=== PATIENT | male | born 1970 | race Caucasian/White ===

== ENCOUNTER 2017-08-31 22:04 | Inpatient (IN) ==
--- NOTE | 2017-08-31 22:26 | EKG Report ---
Test Performed on : 08/31/2017 10:21:00 PM Test Reason : CHEST PAIN Blood Pressure : / mmHG Vent. Rate : 069 BPM Atrial Rate : 069 BPM P-R Int : 180 ms QRS Dur : 100 ms QT Int : 410 ms P-R-T Axes : 073 -16 078 degrees QTc Int : 439 ms Normal sinus rhythm. Normal ECG No previous ECGs available Unconfirmed Result
[2017-08-31] MEDS ORDERED: ALBUTEROL NEB INH ONE (22:30)
[2017-08-31] MEDS ORDERED: DUONEB (A & A) INH ONE (22:30)
[2017-08-31] MEDS ORDERED: SOLU-MEDROL IV ONE (22:30)
[2017-08-31 22:33] LABS: MANUAL DIFF NEEDED? NO
[2017-08-31 23:04] LABS: BASO% 1.3 % (0.0-0.8); EOS# 0.38 X1000 (0.0-0.7); EOS% 6.4 % (0.0-10.0); HEMATOCRIT 44.9 % (42.0-52.0); HEMOGLOBIN 15.3 g/dL (14.0-18.0); IMM GRAN# 0.01 X1000 (0.0-0.04); IMM GRAN% 0.2 % (0.0-0.5); LYMPH# 2.54 X1000 (1.2-3.4); LYMPH% 42.8 % (20.5-51.1); MCH 32.4 PG (27-31); MCHC 34.1 g/dL (33-37); MCV 95.1 FL (81-99); MONO# 1.04 X1000 (0.11-0.59); MONO% 17.5 % (1.7-9.3); MPV 11.4 FL (7.4-10.4); NEUT% 31.8 % (42.2-75.2); PLT 202 X1000 (130-400); RBC 4.72 XMIL (4.7-6.1)
[2017-08-31 23:07] LABS: INR 0.95 (0.86-1.15); PROTIME 13.4 Seconds (12.1-15.5); PTT PL 29.1 Seconds (22.6-43.9)
[2017-08-31 23:11] LABS: ALBUMIN 3.8 g/dL (3.5-5.0); CALCIUM 9.1 mg/dL (8.8-10.2); TOTAL BILIRUBIN 0.4 mg/dL (0.20-1.00); TOTAL PROTEIN 8.8 g/dL (6.3-8.3)
[2017-08-31 23:31] LABS: CK INDEX 2.3 (0.0-2.5); CK-MB 9.17 ng/mL (0.0-5.0)
[2017-09-01] MEDS ORDERED: ZOFRAN IV PRN (00:09)
[2017-09-01] MEDS ORDERED: NICODERM PATCH TD ONE (00:27)
[2017-09-01] MEDS ORDERED: PNEUMOVAX 23 IM ONE (03:03)
[2017-09-01] MEDS: DUONEB (A & A) INH SCH ×5 (03:14→19:27)
--- NOTE | 2017-09-01 07:35 | Diag Imaging Result Doc PS360 ---
EXAM: CHEST-2 VIEWS INDICATION: SOB TECHNIQUE: 2 views COMPARISON: 02/07/2015 FINDINGS: The lungs are grossly clear. There is no discrete pleural fluid collection or pneumothorax. The cardiomediastinal silhouette and central vasculature are grossly unremarkable. IMPRESSION: No evidence of acute pathology by plain radiograph. Electronically signed by Manuel Centeno 09/01/2017 7:33 AM
[2017-09-01] MEDS: COZAAR PO SCH (09:36)
[2017-09-01] MEDS: SYNTHROID PO SCH (09:37)
[2017-09-01] MEDS ORDERED: DUONEB (A & A) INH PRN (14:12)
[2017-09-01] MEDS: SOLU-MEDROL IV SCH ×2 (15:33→22:07)
[2017-09-01] MEDS: ROCEPHIN 1 GM in NS 50 ML IV SCH (15:33)
[2017-09-01] MEDS: NORCO-10 PO PRN (15:59)
[2017-09-01] MEDS: NICODERM PATCH TD SCH (19:31)
[2017-09-02] MEDS: DUONEB (A & A) INH SCH ×7 (00:23→23:06)
[2017-09-02] MEDS: SOLU-MEDROL IV SCH ×3 (06:14→22:18)
[2017-09-02] MEDS: SYNTHROID PO SCH (06:15)
[2017-09-02] MEDS: NORCO-10 PO PRN (06:20)
[2017-09-02 06:24] LABS: BASO% 0.1 % (0.0-0.8); HEMATOCRIT 45.7 % (42.0-52.0); HEMOGLOBIN 15.3 g/dL (14.0-18.0); IMM GRAN# 0.07 X1000 (0.0-0.04); IMM GRAN% 0.3 % (0.0-0.5); LYMPH# 1.29 X1000 (1.2-3.4); LYMPH% 5.8 % (20.5-51.1); MANUAL DIFF NEEDED? YES; MCH 31.8 PG (27-31); MCHC 33.5 g/dL (33-37); MONO# 0.74 X1000 (0.11-0.59); MONO% 3.3 % (1.7-9.3); MPV 11.3 FL (7.4-10.4); NEUT% 90.5 % (42.2-75.2); PLT 230 X1000 (130-400); RBC 4.81 XMIL (4.7-6.1)
[2017-09-02 06:43] LABS: AGAP 16; BUN 20 mg/dL (8-22); CALCIUM 9.2 mg/dL (8.8-10.2); CHLORIDE 97 mmol/L (98-107); COSMO 285; POTASSIUM 4.2 mmol/L (3.5-5.1); SODIUM 134 mmol/L (136-145); TCO2 21 mmol/L (25-35)
[2017-09-02 06:45] LABS: LYMPHS 6 % (21-51)
[2017-09-02] MEDS: COZAAR PO SCH (08:46)
[2017-09-02] MEDS: NICODERM PATCH TD SCH (08:46)
--- NOTE | 2017-09-02 11:13 | Diag Imaging Result Doc PS360 ---
CT ANGIOGRM/PULMONARY ARTERIES - 09/02/2017 INDICATION: Elevated d dimer TECHNIQUE: Axial CT images were obtained after administering intravenous contrast. Coronal MIP images were generated. A CT dose reduction protocol was used. COMPARISON: None FINDINGS: There is significant patient motion artifact. Accounting for this, there is no definite pulmonary embolism. No adenopathy. Heart size is normal. There is some trace scattered atelectasis in the lung bases. No significant infiltrates. There are moderate degenerative changes of the spine. No acute or suspicious bony lesion. IMPRESSION: No obvious acute disease, with limitations imposed by patient motion artifact. Electronically signed by Chuck Breaux 09/02/2017 11:10 AM
[2017-09-02] MEDS: ROCEPHIN 1 GM in NS 50 ML IV SCH (14:38)
[2017-09-03] MEDS: DUONEB (A & A) INH SCH ×4 (03:26→15:23)
[2017-09-03 06:11] LABS: AGAP 13; ALBUMIN 3.5 g/dL (3.5-5.0); ALKALINE PHOSPHATASE 89 U/L (32-122); BUN 22 mg/dL (8-22); CHLORIDE 97 mmol/L (98-107); COSMO 284; GOT 15 U/L (10-34); GPT 28 U/L (10-44); POTASSIUM 4.6 mmol/L (3.5-5.1); SODIUM 134 mmol/L (136-145); TCO2 24 mmol/L (25-35); TOTAL PROTEIN 7.4 g/dL (6.3-8.3)
[2017-09-03 06:15] LABS: HEMATOCRIT 44.1 % (42.0-52.0); HEMOGLOBIN 14.4 g/dL (14.0-18.0); MCH 31.4 PG (27-31); MCHC 32.7 g/dL (33-37); MCV 96.3 FL (81-99); MPV 11.2 FL (7.4-10.4); RBC 4.58 XMIL (4.7-6.1)
[2017-09-03] MEDS: SOLU-MEDROL IV SCH ×2 (06:40→14:25)
[2017-09-03] MEDS: SYNTHROID PO SCH (06:40)
[2017-09-03] MEDS: HUMALOG DOSE (PARKWAY) SUBQ SCH ×3 (06:40→16:18)
[2017-09-03] MEDS: COZAAR PO SCH (09:18)
[2017-09-03] MEDS: NICODERM PATCH TD SCH (09:18)
[2017-09-03] MEDS: ROCEPHIN 1 GM in NS 50 ML IV SCH (14:25)
[2017-09-03] MEDS: NORCO-10 PO PRN (15:01)
[2017-09-03] MEDS ORDERED: VENTOLIN HFA INH PRN (15:48)
[2017-09-03 15:53] VITALS: BP 171/73
[2017-09-03] MEDS ORDERED: ADVAIR 250/50 DISKUS INH SCH (19:30)
[2017-09-04] MEDS ORDERED: LEVAQUIN PO SCH (09:00)
[2017-09-04] MEDS ORDERED: PREDNISONE PO SCH (09:00)
== END 2017-09-03 18:13 | disposition home or self-care (01) ==
LOC: P.ED 22:04 → P.MEDSURG 22:04 → OBSVTOIN 22:05 → SUATTDRO 22:05
PROVIDERS: ATTEND Internal Medicine